=== PATIENT | male | born 1950 | race Two or more races ===

== ENCOUNTER → 2020-11-11 10:47 | Outpatient (BNVA) | payer MEDICARE, SELFPAY | PROVIDERS: PCP Internal Medicine; Visit Provider Hospitalist | DX: Z13.89 Encounter for screening for other disorder (principal) | CPT/HCPCS: 99202 ==

== ENCOUNTER 2020-11-28 06:46 | Outpatient (REF) | payer MEDICARE, SELFPAY ==
[2020-11-28 07:31] LABS: Anion Gap 12 (12-20); Blood Urea Nitrogen 18 mg/dL (9-16); Calcium 9.5 mg/dL (8.4-10.2); Carbon Dioxide 27 mmol/L (22-29); Chloride 107 mmol/L (96-108); Estimated Glomerular Filt Rate > 60; Glucose Random 105 mg/dL (60-115); Potassium 4.3 mmol/L (3.3-5.1); Sodium 142 mmol/L (135-145)
== END 2020-11-28 06:47 | disposition home or self-care (01) ==
LOC: HO.LAB 06:46
PROVIDERS: PCP Internal Medicine; Visit Provider Hospitalist
DX: I26.94 Multiple subsegmental thrombotic pulmonary emboli without acute cor pulmonale (principal); J18.9 Pneumonia, unspecified organism
CPT/HCPCS: 36415; 80048

== ENCOUNTER 2020-12-16 08:46 | Outpatient (REF) | payer MEDICARE, SELFPAY ==
--- NOTE | ~2020-12-16 | CT_ITS ---
EXAMINATION: CT ANGIOGRAM OF THE CHEST WITH AND WITHOUT CONTRAST (CT PULMONARY ANGIOGRAM FOR PE) CLINICAL INFORMATION: Reason for Exam J18.9 - Pneumonia, unspecified organism COMPARISON: None TECHNIQUE: Prior to contrast administration, noncontrast localization images were obtained. Subsequently, multidetector volumetric imaging was performed from the thoracic inlet to below the diaphragms following the administration of 65 mL Omnipaque 350 intravenous contrast. No contrast reaction reported Sagittal, coronal, and MIP oblique sagittal reformatted images were obtained on the CT workstation, uploaded to PACS, and reviewed. This CT examination was performed using dose optimization techniques as appropriate, variously including the following: *Automated exposure control *Adjustment of mA and/or kV according to patient size (this includes techniques or standardized protocols for targeted exams where dose is matched to indication/reason for exam; i.e. extremities or head) *Use of iterative reconstruction technique Total exam dose-length product 182 mGy-cm FINDINGS: QUALITY OF STUDY/CONTRAST BOLUS: Satisfactory. PULMONARY ARTERIES: No central or segmental pulmonary emboli. THORACIC AORTA: No aneurysm or dissection. LUNG: There are large areas of increased attenuation or mosaic perfusion seen throughout the lungs. There is a small 3 mm calcified right upper lobe nodule. There is no evidence of emphysema or bronchiectasis. No endobronchial or endotracheal lesion is seen. PLEURA: No pleural effusion or pneumothorax. MEDIASTINUM: Normal heart size. Mild coronary artery and aortic valve calcification. No pericardial effusion. There is shotty mediastinal lymphadenopathy. No enlarged lymph nodes are seen.. No evidence of septal bowing or right heart strain. CHEST WALL/AXILLA: No axillary or internal mammary lymphadenopathy. OSSEOUS STRUCTURES: No acute or suspicious osseous abnormality. UPPER ABDOMEN: There is a small low-attenuation lesion in the peripheral lateral segment of the left lobe of the liver. The there is hypertrophy of the left lobe questionable for mild cirrhotic changes. The main portal vein is upper normal in size measuring 1.7 cm and there are small upper abdominal varices. Findings are questionable for portal hypertension.. No reflux of contrast into the hepatic veins to suggest elevated right heart pressures. CT/CT angio chest PE protocol IMPRESSION: No evidence of pulmonary embolism. Large areas of increased parenchymal attenuation questionable for pneumonitis or hypoventilatory changes. VTE: negative
== END 2020-12-16 08:47 | disposition home or self-care (01) ==
LOC: HO.CT 08:46
PROVIDERS: Visit Provider Hospitalist
DX: J18.9 Pneumonia, unspecified organism (principal); I26.99 Other pulmonary embolism without acute cor pulmonale
CPT/HCPCS: 71275; Q9967

== ENCOUNTER → 2020-12-20 10:01 | Outpatient (BNVA) | payer MEDICARE, SELFPAY | PROVIDERS: PCP Internal Medicine; Visit Provider Hospitalist | DX: I26.94 Multiple subsegmental thrombotic pulmonary emboli without acute cor pulmonale (principal); J18.9 Pneumonia, unspecified organism | CPT/HCPCS: 99212 ==

== ENCOUNTER → 2021-01-30 10:46 | Outpatient (BNVA) | payer MEDICARE, SELFPAY | PROVIDERS: PCP Internal Medicine; Visit Provider Hospitalist | DX: I26.94 Multiple subsegmental thrombotic pulmonary emboli without acute cor pulmonale (principal); B94.8 Sequelae of other specified infectious and parasitic diseases; J18.9 Pneumonia, unspecified organism; J01.00 Acute maxillary sinusitis, unspecified | CPT/HCPCS: 99212 ==

== ENCOUNTER 2021-03-07 06:52 | Outpatient (REF) | payer MEDICARE, SELFPAY ==
[2021-03-07 07:16] LABS: MANUAL DIFF FLAG NO
[2021-03-07 07:19] LABS: Basophils Absolute Auto 0.1 X10*3/uL (0.0-0.2); Eosinophils Absolute Auto 0.2 X10*3/uL (0.0-0.4); Hematocrit 48.8 % (42-52); Hemoglobin 15.5 g/dl (14.0-18.0); Imm Gran Abs Auto 0.02 X10*3/uL (0.00-0.03); Imm Gran Pct Auto 0.3 % (0.0-0.4); Lymphocytes Absolute Auto 2.5 X10*3/uL (1.2-4.9); Lymphocytes Percent Auto 37.6 % (20-40); Mean Corpuscular HGB Conc 31.8 g/dl (31.0-36.0); Mean Corpuscular Hemoglobin 27.4 pg (27.0-33.0); Mean Corpuscular Volume 86.2 fL (80-98); Mean Platelet Volume 10.5 fL (9.4-12.4); Monocytes Absolute Auto 0.5 X10*3/uL (0.1-1.2); Monocytes Percent Auto 7.4 % (2-11); Neutrophils Absolute Auto 3.4 X10*3/uL (2.0-8.3); Neutrophils Percent Auto 50.7 % (45-73); Platelet Count 311 X10*3/uL (160-400); Red Blood Count 5.66 X10*6/uL (4.60-5.80); Red Cell Distribution Width 14.3 % (11.0-16.0); White Blood Count 6.8 X10*3/uL (4.8-10.8)
[2021-03-07 07:27] LABS: D Dimer < 200 NG/ML
[2021-03-07 08:16] LABS: Erythrocyte Sedimentation Rate 2 MM/HR (0-15)
[2021-03-11 14:21] LABS: Anti Nuclear Antibody Pattern Nuclear, Homogeneous; Anti Nuclear Antibody Screen POSITIVE (NEGATIVE)
== END 2021-03-07 06:53 | disposition home or self-care (01) ==
LOC: HO.LAB 06:52
PROVIDERS: PCP Internal Medicine; Visit Provider Hospitalist
DX: I26.94 Multiple subsegmental thrombotic pulmonary emboli without acute cor pulmonale (principal); J18.9 Pneumonia, unspecified organism
CPT/HCPCS: 36415; 85025; 85379; 85652; 86038; 86039

== ENCOUNTER → 2021-03-21 08:45 | Outpatient (BNVA) | payer MEDICARE, SELFPAY | PROVIDERS: PCP Internal Medicine; Visit Provider Hospitalist | DX: I26.94 Multiple subsegmental thrombotic pulmonary emboli without acute cor pulmonale (principal); J18.9 Pneumonia, unspecified organism; B94.8 Sequelae of other specified infectious and parasitic diseases | CPT/HCPCS: 99212 ==

== ENCOUNTER → 2021-06-18 08:13 | Outpatient (BNVA) | payer MEDICARE, SELFPAY | PROVIDERS: PCP Internal Medicine; Visit Provider Hospitalist | DX: J18.9 Pneumonia, unspecified organism (principal); I26.94 Multiple subsegmental thrombotic pulmonary emboli without acute cor pulmonale; R76.8 Other specified abnormal immunological findings in serum; B94.8 Sequelae of other specified infectious and parasitic diseases | CPT/HCPCS: 99212 ==

== ENCOUNTER 2021-12-04 06:26 | Outpatient (REF) | payer OTHER, SELFPAY ==
--- NOTE | ~2021-12-04 | XR_ITS ---
EXAMINATION: XR CHEST 2 VIEWS CLINICAL INFORMATION: Cough. COMPARISON: CTA chest dated 12/16/2020. TECHNIQUE: Frontal and lateral views of the chest were obtained. FINDINGS: The heart, great vessels, pulmonary vasculature and mediastinum are normal. A right pericardial fat-pad is redemonstrated, consistent with prior CT findings (7:52) The lungs show no focal infiltrate, effusion or pneumothorax. There is mild elevation of the right hemidiaphragm. There is no acute osseous abnormality. XR/XR chest 2V IMPRESSION: No active cardiopulmonary disease.
[2021-12-04 06:46] LABS: MANUAL DIFF FLAG NO
[2021-12-04 06:55] LABS: Basophils Absolute Auto 0.1 X10*3/uL (0.0-0.2); Basophils Percent Auto 0.7 % (0-2); Eosinophils Absolute Auto 0.2 X10*3/uL (0.0-0.4); Eosinophils Percent Auto 2.6 % (0-4); Hematocrit 47.9 % (42.0-52.0); Hemoglobin 15.3 g/dl (14.0-18.0); Imm Gran Abs Auto 0.01 X10*3/uL (0.00-0.03); Imm Gran Pct Auto 0.1 % (0.0-0.4); Lymphocytes Absolute Auto 2.8 X10*3/uL (1.2-4.9); Mean Corpuscular HGB Conc 31.9 g/dl (31.0-36.0); Mean Corpuscular Hemoglobin 27.4 pg (27.0-33.0); Mean Corpuscular Volume 85.8 fL (80.0-98.0); Mean Platelet Volume 10.6 fL (9.4-12.4); Monocytes Absolute Auto 0.5 X10*3/uL (0.1-1.2); Monocytes Percent Auto 7.2 % (2-11); Neutrophils Absolute Auto 3.8 x10*3/uL (2.0-8.3); Neutrophils Percent Auto 51.4 % (45-73); Platelet Count 277 X10*3/uL (160-400); Red Blood Count 5.58 X10*6/uL (4.60-5.80); Red Cell Distribution Width 13.8 % (11.0-16.0); White Blood Count 7.4 X10*3/uL (4.8-10.8)
[2021-12-04 07:31] LABS: Erythrocyte Sedimentation Rate 2 MM/HR (0-15)
--- NOTE | 2021-12-04 09:27 | PFT_ITS ---
Forced vital capacity 90%, FEV1 101%, FEF 25/75, 157%, and MVV 106%. All these values are normal. No significant response to bronchodilator therapy. Total lung capacity 76% and residual volume 58%. Diffusion capacity 69%. CONCLUSION: Mild restrictive pulmonary disorder. No evidence of obstructive airway disorder and no significant response to bronchodilator therapy. MD RENETTA Vera/MODL / [id number]
[2021-12-05 17:11] LABS: SARS-COV-2 IgG Spike, Semi-Qnt >150.00 index (<1.00)
[2021-12-09 09:17] LABS: Anti Nuclear Antibody Pattern Nuclear, Homogeneous; Anti Nuclear Antibody Screen POSITIVE (NEGATIVE); Anti Nuclear Antibody Titer 1:40 titer
== END 2021-12-04 06:27 | disposition home or self-care (01) ==
LOC: HO.RESP 06:26
PROVIDERS: PCP Internal Medicine; Visit Provider Hospitalist
DX: R06.00 Dyspnea, unspecified (principal); B94.8 Sequelae of other specified infectious and parasitic diseases; I26.99 Other pulmonary embolism without acute cor pulmonale; J18.9 Pneumonia, unspecified organism; R76.8 Other specified abnormal immunological findings in serum
CPT/HCPCS: 36415; 71046; 85025; 85652; 86038; 86039; 86769; 94060; 94727; 94729

== ENCOUNTER 2021-12-18 09:11 | Outpatient (REF) | payer OTHER, SELFPAY ==
[2021-12-18 11:35] LABS: D Dimer High Sensitivity < 150 NG/ML
== END 2021-12-18 09:12 | disposition home or self-care (01) ==
LOC: HO.LAB 09:11
PROVIDERS: PCP Internal Medicine; Visit Provider Hospitalist
DX: B94.8 Sequelae of other specified infectious and parasitic diseases (principal); I26.99 Other pulmonary embolism without acute cor pulmonale; J18.9 Pneumonia, unspecified organism; I26.94 Multiple subsegmental thrombotic pulmonary emboli without acute cor pulmonale; R76.8 Other specified abnormal immunological findings in serum
CPT/HCPCS: 36415; 85379; 99212

== ENCOUNTER → 2022-01-30 08:59 | Outpatient (BNVA) | payer OTHER, SELFPAY | PROVIDERS: PCP Internal Medicine; Visit Provider Hospitalist | DX: J18.9 Pneumonia, unspecified organism (principal); I26.94 Multiple subsegmental thrombotic pulmonary emboli without acute cor pulmonale; R76.8 Other specified abnormal immunological findings in serum | CPT/HCPCS: 99212 ==

== ENCOUNTER 2022-10-02 09:38 | Outpatient (REF) | payer OTHER, SELFPAY ==
--- NOTE | ~2022-10-02 | XR_ITS ---
EXAMINATION: XR CHEST 2 VIEWS CLINICAL INFORMATION: Pneumonia. COMPARISON: Chest radiographs dated 12/04/2021. TECHNIQUE: Frontal and lateral views of the chest were obtained. FINDINGS: The heart, great vessels, pulmonary vasculature and mediastinum are normal. The lungs show no focal infiltrate, effusion or pneumothorax. There is moderate elevation of the right hemidiaphragm. There is no acute osseous abnormality. XR/XR chest 2V IMPRESSION: No active cardiopulmonary disease.
== END 2022-10-02 09:39 | disposition home or self-care (01) ==
LOC: HO.XRAY 09:38
PROVIDERS: PCP Internal Medicine; Visit Provider Hospitalist
DX: I26.94 Multiple subsegmental thrombotic pulmonary emboli without acute cor pulmonale (principal); J18.9 Pneumonia, unspecified organism; R76.8 Other specified abnormal immunological findings in serum; R01.1 Cardiac murmur, unspecified
CPT/HCPCS: 71046; 99212

== ENCOUNTER → 2022-10-21 08:31 | Outpatient (REF) | payer OTHER, SELFPAY ==
--- NOTE | 2022-10-21 08:34 | CA_ITS ---
Transthoracic Echocardiogram Patient (Last, First, Middle): Rochelle Nath, Gender: Male Date of : 1950 Age: 72 Procedure Date: 10/21/2022 Procedure Type: Transthoracic Echocardiogram Location: OP Height: 167.64 cm Weight: 86.18 kg BSA: 1.96 m2 Heart Rate: bpm BP: 130 / 70 mmHg [employer] Technical Officer: TO Referring MD: Gabriele Rosas MD Front Office Clerk: Rell Jiménez MD Symptoms: R01.1 - Cardiac murmur, unspecified Study Quality: Fair/Contrast ECG Rhythm: Sinus Conclusions: - 1. Normal LV systolic function with pseudonormal filling pattern 2. Calcified aortic valve with early mild aortic stenosis and mild aortic regurgitation 3. Normal RV systolic pressure 4. Mildly dilated ascending aorta at 4 cm 5. No gross pericardial effusion Findings Procedure Information Contrast agent, definity, is being given per protocol without apparent complications. Left Ventricle Normal left ventricular size, thickness, and systolic function. The visually estimated ejection fraction is between 60-65%. Spectral Doppler is indicative of a pseudonormal filling pattern. E/E prime ratio is between 8 and 15 consistent with indeterminate filling pressures. Right Ventricle Normal right ventricular cavity size and systolic function. Atria The left atrium is likely dilated. Interatrial shunt cannot be excluded. The right atrium is normal in size. Aortic Valve There is moderate calcification of the aortic valve. There is moderate thickening of the aortic valve. The peak aortic gradient is 16 mmHg.The mean gradient is 9 mmHg. There is mild aortic valve regurgitation. Mitral Valve There is mild anterior and posterior mitral leaflet thickening. There is mild mitral annular calcification. There is trace mitral valve regurgitation. There is no mitral valve stenosis. Pulmonic Valve The pulmonic valve was not well visualized. Tricuspid Valve Likely normal tricuspid valve structure and function. There is trace tricuspid valve regurgitation. The right ventricular systolic pressure is normal. The right ventricular systolic pressure is 21 mmHg. Normal right atrial pressure. There is no evidence of pulmonary hypertension. Great Vessels The pulmonary artery was not well visualized. There is mild dilatation of the ascending aorta. Venous The inferior vena cava is normal in size and collapses greater than 50% with inspiration. Pericardium/Pleural There is no evidence of pericardial effusion. Prior Study Comparison No prior study available for comparison. Measurements 2D Linear Measurements IVSd: 0.90 0.6-0.9/0.6-1.0 cm LVIDd: 4.84 3.9-5.3/4.2-5.9 cm LVIDd Index: 2.47 2.4-3.2/2.2-3.1 cm/m2 LVIDs: 3.08 2.0-3.6 cm LVPWd: 0.92 0.7-1.1 cm LA Diam: 4.30 2.7-3.8/3.0-4.0 cm LAIDs Index: 2.19 1.5-2.3 cm/m2 LV Mass: 189.45 67-162/88-224 g LV Mass Index: 96.66 43-95/49-115 g/m2 LVOT Diam: 2.10 3.0+(-)1.3 cm 2D Systolic Function EF 4C: 65.40 >55% EF 2C: 63.70 >55% EF BiP: 63.30 >55% Mitral Valve MV Pk E: 0.62 MV PK A: 0.41 MV Decel Time: 164.00 E/A: 1.50 E'Lateral: 10.10 E'Medial: 5.66 E/E' Med: 10.90 E/E' Lat: 6.10 PHT: 48.00 MVA PHT: 4.58 Decel [place]: 3.76 Aortic Valve AoV Pk Nick: 2.01 AoV Mn Nick: 1.38 AoV VTI: 0.42 AoV Pk Grad: 16.00 Aov Mn Grad: 9.00 GOLD Cont.VTI: 2.08 LVOT LVOT Pk Nick: 1.04 LVOT Mn Nick: 0.71 LVOT VTI: 0.25 LVOT Pk Grad: 4.00 LVOT Mn Grad: 2.00 LVOT Diam: 2.10 LVOT Area: 3.46 Diastolic Function MV Pk E: 0.62 MV Pk A: 0.41 E/A: 1.50 E'Medial: 5.66 E/E' Med: 10.90 E' Laterial: 10.10 E/E' Lat: 6.10 Right Ventricle TAPSE (mm): 21.70 TVS' Nick: 12.60 Tricuspid Valve TR Pk Nick: 2.10 TR Pk Grad: 18.00 RA Press: 3.00 RVSP: 21.00 Great Vessels Aorta Sinus of Valsalva: 3.83 2.0-3.5 cm Ao Asc: 4.00 2.1-3.4 cm Updated in Other Vendor System with Status of Final Rell Jiménez MD electronically signed on 10/21/2022 3:41:20 PM with status of Final
== END ==
LOC: HO.CARD 08:31
PROVIDERS: PCP Internal Medicine; Visit Provider Hospitalist
DX: R01.1 Cardiac murmur, unspecified (principal)
CPT/HCPCS: 93306; Q9957

== ENCOUNTER 2023-10-01 09:38 | Outpatient (AMB) | payer OTHER, SELFPAY ==
[2023-10-01 09:42] VITALS: BP 124/70; PULSE 80; O2SAT 98; BMI 31.8
--- NOTE | 2023-10-01 09:42 | A.OFFVIS_ITS ---
Intake Vital Signs 10/01/23 09:42 Height 5 ft 6 in Weight 197 lb 5.019 oz BMI 31.8 BP 124/70 Blood Pressure Location Lt brachial Position Sitting Pulse 80 Pulse Source Pulse Oximeter Pulse Oximetry (%) 98 Oxygen Delivery Method Room Air Intake Visit Reasons: Pulmonary embolism Reference Archivist Required: No Allergies No Known Allergies Allergy (Verified 10/01/23 09:45) HPI HPI Comments History of Present Illness Details The patient is a 73-year-old gentleman who has previously healthy until back in the end of June when he developed COVID-19. He was ultimately hospitalized at [facility] for approximately more than 2 weeks. The patient did have COVID-19 pneumonia. He was treated appropriately there subsequently discharged home. He felt weak. His symptoms continued getting worsening became more short of breath. He was so concerned with the breathing that he went back to [facility] for further evaluation. There in the ER he did undergo a CT scan of the chest PE protocol demonstrating multiple segmental and subsegmental emboli primarily in the right upper middle and lower lobes. The patient also had ground-glass opacities consistent with pneumonitis own also consolidation consistent with pneumonia. The patient has been on Eliquis ever since. He is running out of the Eliquis is wondering if he should continue. At this point the patient continues to have some symptoms of shortness of breath with activity mild in severity. We did have him go for 6 minutes walk test. During the ambulation he was able to ambulate 300 yd. His heart rate did increase to about 108 resulting in some increased shortness of breath. His Thomas score is 4/10. His pulse ox is the lowest became was 95%. Based on his ongoing dyspnea symptoms will be reasonable to repeat the CT scan of the chest to assess the pneumonitis and also to assess the consolidation in addition to make sure that his clots are resolved prior to stopping the anticoagulation. 12/20/2020 patient is here for pulmonary follow-up visit. Overall patient is doing well. He is tolerating the anticoagulation well. No evidence of any bleeding. The patient did have a repeat CT chest angiogram demonstrating resolution of the bone disease in addition to the stable pulmonary nodules. Still, the patient demonstrates areas of mosaic pattern in or pneumonitis which is likely the result of the cover 19 infection. His breathing is overall better. Plan to complete to 6 months of anticoagulation that he can stop the anticoagulation and will recheck his D-dimer 4 weeks later to risk stratify his risk for recurrent thromboembolic disease. 01/30/2021 the patient is here for saundra batista sick visit. Since we last spoke she has been having significant coughing episodes. The cough is getting worse and very aggravating to him. Moderate severity. Fact in his sleep. He is also very concerned because is coughing Public specially with the pandemic going on. He has been using the Dulera twice a day. He does have a postnasal drip and nasal congestion. Sometimes starts going to the coughing spells has lightheadedness. His lungs sound diminished but clear. No significant wheezing appreciated. Likely upper airway cough syndrome. He is not taking any KORTNEY inhibitors at this time. He has been taking iorv-zgt-pzqtzyu cough medication without any significant improvement. 03/21/2021 the patient is here for a pulmonary follow-up visit. Overall he is feeling a little better. His cough has improved a little bit. Although, he continues to have coughing spells to the medicine has been partially helpful. He continues to take to Dulera in addition to the cough suppressants. We did review again his CT scan of the chest demonstrating residual interstitial changes that are likely corresponding to his cough. He did complete the prednisone. No additional prednisone warranted. He has been on the Eliquis no more than 4 weeks. His D-dimer was below 200 which is reassuring that his risk of recurrent clot is low. Therefore he will continue to be off the anticoagulation at this time. No evidence of any residual clots and a CT scan of the chest which is also reassuring he did undergo blood he did have a slightly elevated MADELYN titer which at this point is likely not related to his interstitial process. However, needs to be monitored closely to see if it worsens or if he develops any other connective tissue disease symptoms. 06/18/2021 the patient is here for a [facility] follow-up visit. Overall he is doing little better. He continues to a dry cough. Moderate severity at times. The cough suppressant, codeine only cause dizziness in addition so therefore he stopped it. Tessalon Perles are still helpful. He rated completed the prednisone. Denies any more wheezing or chest congestion. He is using the Dulera. He was supposed to undergo pulmonary function studies but he did not. He has been walking regularly. At this point will have him get a repeat chest x-ray and PFTs prior to the next visit. He is wondering about the risk of blood clots. He is having some tenderness over the right calf. His blood clots were in the left calf. I did put putting for blood work including a D-dimer that he can not check in case symptoms do persist. If the D-dimer indeed is elevated then will have to we evaluate for potential clot burden. 12/18/2021 the patient is here for pulmonary follow-up visit. He continues to complain of a dry cough in addition to chest tightness and wheezing. Moderate severity. His inhalers Have not been that helpful. In addition to that he does complaint of dyspnea on exertion. He does try to exercise but he gets very winded very quickly. Moderate severity. He did have a chest x-ray done demonstrating persistent airspace disease likely some degree of reticular changes due to his severe COVID infection. He did undergo pulmonary function studies also demonstrating ovjg-ta-hlhspozj restrictive process due to the interstitial lung disease. Therefore, vanc being his diffusing capacity as well. In the office we did go for 6 minutes walk test the patient did not desaturate below 94%. Still the patient did become tachycardic and became symptomatic. In addition to he did complain of calf discomfort in his left side. Therefore I told them that we should at least do a D-dimer to make sure that he does not have any recurrent clots. He did have a D-dimer done actually today and did come back negative. Therefore this is reassuring that he does not have any evidence of any recurrent thromboembolic disease however, was to continue to monitor him closely. In view of the patient not responding well to his inhaler will provide with a nebulizer machine that he can use twice a day to see if this provides additional benefits. If the nebulizer is more effective for him he can also add additional medications to help him improve his symptoms. 01/30/2022 the patient is here for pulmon jonnathan follow-up visit. Overall he is feeling better. His cough is overall better. He is using his respiratory therapy with good effect. Denies any significant tachycardia. Denies any leg swelling or chest pain. He has been off anticoagulation now for several months. His D-dimer came back negative. We did review his last chest x-ray from November 2021 demonstrating no acute disease. At this point the patient has recovered and doing better. 10/02/2022 The patient is here for pulshirlene batista follow-up visit. Overall the patient continues to do well. His cough still continues to be better. He still complains of some dyspnea on exertion. He does go to the gym regularly and does have wuue-sz-szogoktj shortness of breath. He is trying to stay active and exercise regularly. He also continues uses maintenance inhaler. He has not had to use his rescue inhaler. We did review his recent chest x-ray that he had today. No active disease noted. No additional x-rays are needed. Although this has not been finally read. If there is any other changes that I did not appreciate then will follow through. In the meantime the patient had an exam and he did have a murmur on examination. therefore, in view of his shortness of breath I will go ahead and request an echocardiogram to make sure that there was no significant findings. Otherwise patient will return in 1 year. 10/01/2023 the patient is here for pul[place] follow-up visit. The patient overall has been doing very well. He denies any significant shortness breath. Has not had to use his inhalers regularly. We did review his last echocardiogram that he had back in 2022 demonstrating mild degree of aortic stenosis anywhere aortic regurg with a slightly dilated ascending aorta. This was measuring 4 cm. I did give him a report the patient will follow-up with his primary care doctor. I did not appreciate a murmur today. I did recommend he has some degree of follow-up in the future for these issues. From a pulmonary standpoint the patient is doing well he continue with the current respiratory regimen. He will follow-up in a year's time or as needed. [facility] Medical History (Updated 10/01/23 @ 12:31 by Gabriele Rosas MD) Mild ascending aorta dilatation Murmur MADELYN positive [id number] syndrome Pulmonary emboli Pneumonia Pneumonitis Social History Patient Tobacco Use Status: Never used Tobacco Review of Systems Const Denies night sweats ENT Denies change in voice, Denies lip swelling, Denies mouth pain, Reports nasal congestion, Reports nasal discharge and Denies tongue swelling Card Denies chest pain and Denies dyspnea on exertion Resp Reports cough and Denies dyspnea on exertion GI Denies abdominal pain Musc Denies no additional complaints Neuro Denies Neuro-related abnormal movements Psych Denies no additional complaints Darius/Lymph Denies easy bleeding and Denies lymphadenopathy Aller/Immun Denies lip swelling and Denies tongue swelling Physical Exam Vital Signs: Last Vital Signs Pulse 80 10/01/23 09:42 BP 124/70 10/01/23 09:42 Pulse Ox 98 10/01/23 09:42 Oxygen Delivery Method Room Air 10/01/23 09:42 BMI result Body Mass Index 31.8 Const General: alert HEENT Mouth: Normal oral and palatal mucosa present and oropharynx normal Neck Neck: Yes normal visual inspection, Yes full ROM and Yes no lymphadenopathy Chest Chest palpation & inspection: normal inspection of the chest Resp Effort & Inspection: normal respiratory effort Auscultation: clear to auscultation bilaterally and no wheezes Cardio Rate: regular rate Rhythm: regular rhythm Heart sounds: S1 normal heart sound present and S2 normal heart sound present GI Palpation (GI): Soft to palpation and nontender Auscultation: normal bowel sounds Results Reviewed Results Reviewed: [place] [id number] Cardiology Report Signed Patient: Rochelle Nath MR#: [id number] : 1950 Acct:[id number] Age/Sex: 72 / M ADM Date: 10/21/22 Loc: [facility] Attending Dr: Gabriele oRsas MD Ordering Physician: Gabriele Rosas MD Date of Service: 10/21/22 Procedure(s): CA echo transthorac w con Accession Number(s): cc: Gabriele Rosas MD~ Transthoracic Echocardiogram Patient (Last, First, Middle): Rochelle Nath, Gender: Male Date of : 1950 Age: 72 Procedure Date: 10/21/2022 Procedure Type: Transthoracic Echocardiogram Location: OP Height: 167.64 cm Weight: 86.18 kg BSA: 1.96 m2 Heart Rate: bpm BP: 130 / 70 mmHg Wound Care Specialist: TO Referring MD: Gabriele Rosas MD Electronic Imager: Rell Jiménez MD Symptoms: R01.1 - Cardiac murmur, unspecified Study Quality: Fair/Contrast ECG Rhythm: Sinus Conclusions: - 1. Normal LV systolic function with pseudonormal filling pattern 2. Calcified aortic valve with early mild aortic stenosis and mild aortic regurgitation 3. Normal RV systolic pressure 4. Mildly dilated ascending aorta at 4 cm 5. No gross pericardial effusion Findings Procedure Information Contrast agent, definity, is being given per protocol without apparent complications. Left Ventricle Normal left ventricular size, thickness, and systolic function. The visually estimated ejection fraction is between 60-65%. Spectral Doppler is indicative of a pseudonormal filling pattern. E/E prime ratio is between 8 and 15 consistent with indeterminate filling pressures. Right Ventricle Normal right ventricular cavity size and systolic function. Atria The left atrium is likely dilated. Interatrial shunt cannot be excluded. The right atrium is normal in size. Aortic Valve There is moderate calcification of the aortic valve. There is moderate thickening of the aortic valve. The peak aortic gradient is 16 mmHg.The mean gradient is 9 mmHg. There is mild aortic valve regurgitation. Mitral Valve There is mild anterior and posterior mitral leaflet thickening. There is mild mitral annular calcification. There is trace mitral valve regurgitation. There is no mitral valve stenosis. Pulmonic Valve The pulmonic valve was not well visualized. Tricuspid Valve Likely normal tricuspid valve structure and function. There is trace tricuspid valve regurgitation. The right ventricular systolic pressure is normal. The right ventricular systolic pressure is 21 mmHg. Normal right atrial pressure. There is no evidence of pulmonary hypertension. Great Vessels The pulmonary artery was not well visualized. There is mild dilatation of the ascending aorta. Venous The inferior vena cava is normal in size and collapses greater than 50% with inspiration. Pericardium/Pleural There is no evidence of pericardial effusion. Prior Study Comparison No prior study available for comparison. Measurements 2D Linear Measurements IVSd: 0.90 0.6-0.9/0.6-1.0 cm LVIDd: 4.84 3.9-5.3/4.2-5.9 cm LVIDd Index: 2.47 2.4-3.2/2.2-3.1 cm/m2 LVIDs: 3.08 2.0-3.6 cm LVPWd: 0.92 0.7-1.1 cm LA Diam: 4.30 2.7-3.8/3.0-4.0 cm LAIDs Index: 2.19 1.5-2.3 cm/m2 LV Mass: 189.45 67-162/88-224 g LV Mass Index: 96.66 43-95/49-115 g/m2 LVOT Diam: 2.10 3.0+(-)1.3 cm 2D Systolic Function EF 4C: 65.40 >55% EF 2C: 63.70 >55% EF BiP: 63.30 >55% Mitral Valve MV Pk E: 0.62 MV PK A: 0.41 MV Decel Time: 164.00 E/A: 1.50 E'Lateral: 10.10 E'Medial: 5.66 E/E' Med: 10.90 E/E' Lat: 6.10 PHT: 48.00 MVA PHT: 4.58 Decel [place]: 3.76 Aortic Valve AoV Pk Nick: 2.01 AoV Mn Nick: 1.38 AoV VTI: 0.42 AoV Pk Grad: 16.00 Aov Mn Grad: 9.00 GOLD Cont.VTI: 2.08 LVOT LVOT Pk Nick: 1.04 LVOT Mn Nick: 0.71 LVOT VTI: 0.25 LVOT Pk Grad: 4.00 LVOT Mn Grad: 2.00 LVOT Diam: 2.10 LVOT Area: 3.46 Diastolic Function MV Pk E: 0.62 MV Pk A: 0.41 E/A: 1.50 E'Medial: 5.66 E/E' Med: 10.90 E' Laterial: 10.10 E/E' Lat: 6.10 Right Ventricle TAPSE (mm): 21.70 TVS' Nick: 12.60 Tricuspid Valve TR Pk Nick: 2.10 TR Pk Grad: 18.00 RA Press: 3.00 RVSP: 21.00 Great Vessels Aorta Sinus of Valsalva: 3.83 2.0-3.5 cm Ao Asc: 4.00 2.1-3.4 cm Updated in Other Vendor System with Status of Final Rell Jiménez MD electronically signed on 10/21/2022 3:41:20 PM with status of Final Dictated By: Rell Jiménez MD Signed By: <Electronically signed by Rell Jiménez MD in OV> 10/21/22 1541 DD/ 0904 TD/TT: Sculpture Instructor: Assessment & Plan Assessment & Plan (1) Pulmonary emboli: Comment: now resolve this was secondary to his COVID-19 infection therefore, consider a provoked event, ddimer negative x 2 Code(s): I26.99 - Other pulmonary embolism without acute cor pulmonale Qualifiers: Pulmonary embolism type: multiple subsegmental (without acute cor pulmonale) Qualified Code(s): I26.94 - Multiple subsegmental pulmonary emboli without acute cor pulmonale (2) MADELYN positive: Code(s): R76.8 - Other specified abnormal immunological findings in serum (3) Murmur: Comment: mild /AR Code(s): R01.1 - Cardiac murmur, unspecified (4) Mild ascending aorta dilatation: Code(s): I77.810 - Thoracic aortic ectasia Plan Continue Dulera short-acting beta agonist as needed Follow-up with primary care regarding the findings on the echocardiogram. I did give him a copy. As attached a copy to this report. F/U 12 months or as needed Medications: Changed From mometasone-formoterol 200-5 mcg/actuation (Dulera) 2 puffs inhalation BID To mometasone-formoterol 200-5 mcg/actuation (Dulera) 2 puffs inhalation BID 30 days 13 grams 11RF Refilled albuterol sulfate 90 mcg/actuation 2 inhalations inhalation Q6H 30 days PRN 18 grams 12RF shortness of breath or wheezing J44.9 - Chronic obstructive pulmonary disease, unspecified Coding Level of Care Code Est Pt Level 4 (12591) Diagnoses Multiple subsegmental pulmonary emboli without acute cor pulmonale I26.94 Pulmonary embolism type: multiple subsegmental (without acute cor pulmonale) MADELYN positive R76.8 Murmur R01.1 Mild ascending aorta dilatation I77.810 Time Spent (min) 17
== END 2023-10-01 10:00 | disposition home or self-care (01) ==
PROVIDERS: PCP Internal Medicine; Visit Provider Hospitalist
DX: I26.94 Multiple subsegmental thrombotic pulmonary emboli without acute cor pulmonale (principal); R76.8 Other specified abnormal immunological findings in serum; R01.1 Cardiac murmur, unspecified; I77.810 Thoracic aortic ectasia
CPT/HCPCS: 99214

== ENCOUNTER → 2023-10-01 09:38 | Outpatient (BNVA) | payer OTHER, SELFPAY | PROVIDERS: PCP Internal Medicine; Visit Provider Hospitalist | DX: Z86.711 Personal history of pulmonary embolism (principal); R76.8 Other specified abnormal immunological findings in serum; R01.1 Cardiac murmur, unspecified; I77.810 Thoracic aortic ectasia | CPT/HCPCS: 99212 ==

== ENCOUNTER 2024-12-28 08:36 | Outpatient (AMB) | payer OTHER, SELFPAY ==
--- NOTE | 2024-12-28 08:40 | MHC.OFFVIS ---
Vital Signs 12/28/24 08:41 Height 5 ft 6 in Weight 195 lb 1.745 oz BMI 31.5 BP 120/68 Blood Pressure Location Lt brachial Position Sitting Pulse 83 Pulse Source Pulse Oximeter Pulse Oximetry (%) 97 Oxygen Delivery Method Room Air Intake Visit Reasons: Pulmonary embolism Accompanied by: Self / Same As Patient Allergies No Known Allergies Allergy (Verified 12/28/24 08:43) HPI Comments Details: The patient is a 74-year-old gentleman who has previously healthy until back in the end of June when he developed COVID-19. He was ultimately hospitalized at [facility] for approximately more than 2 weeks. The patient did have COVID-19 pneumonia. He was treated appropriately there subsequently discharged home. He felt weak. His symptoms continued getting worsening became more short of breath. He was so concerned with the breathing that he went back to [facility] for further evaluation. There in the ER he did undergo a CT scan of the chest PE protocol demonstrating multiple segmental and subsegmental emboli primarily in the right upper middle and lower lobes. The patient also had ground-glass opacities consistent with pneumonitis own also consolidation consistent with pneumonia. The patient has been on Eliquis ever since. He is running out of the Eliquis is wondering if he should continue. At this point the patient continues to have some symptoms of shortness of breath with activity mild in severity. We did have him go for 6 minutes walk test. During the ambulation he was able to ambulate 300 yd. His heart rate did increase to about 108 resulting in some increased shortness of breath. His Thomas score is 4/10. His pulse ox is the lowest became was 95%. Based on his ongoing dyspnea symptoms will be reasonable to repeat the CT scan of the chest to assess the pneumonitis and also to assess the consolidation in addition to make sure that his clots are resolved prior to stopping the anticoagulation. 12/20/2020 patient is here for pulmonary follow-up visit. Overall patient is doing well. He is tolerating the anticoagulation well. No evidence of any bleeding. The patient did have a repeat CT chest angiogram demonstrating resolution of the bone disease in addition to the stable pulmonary nodules. Still, the patient demonstrates areas of mosaic pattern in or pneumonitis which is likely the result of the cover 19 infection. His breathing is overall better. Plan to complete to 6 months of anticoagulation that he can stop the anticoagulation and will recheck his D-dimer 4 weeks later to risk stratify his risk for recurrent thromboembolic disease. 01/30/2021 the patient is here for pulmonary sick visit. Since we last spoke she has been having significant coughing episodes. The cough is getting worse and very aggravating to him. Moderate severity. Fact in his sleep. He is also very concerned because is coughing Public specially with the pandemic going on. He has been using the Dulera twice a day. He does have a postnasal drip and nasal congestion. Sometimes starts going to the coughing spells has lightheadedness. His lungs sound diminished but clear. No significant wheezing appreciated. Likely upper airway cough syndrome. He is not taking any KORTNEY inhibitors at this time. He has been taking cwps-ajg-stbnmed cough medication without any significant improvement. 03/21/2021 the patient is here for a pulmonary follow-up visit. Overall he is feeling a little better. His cough has improved a little bit. Although, he continues to have coughing spells to the medicine has been partially helpful. He continues to take to Dulera in addition to the cough suppressants. We did review again his CT scan of the chest demonstrating residual interstitial changes that are likely corresponding to his cough. He did complete the prednisone. No additional prednisone warranted. He has been on the Eliquis no more than 4 weeks. His D-dimer was below 200 which is reassuring that his risk of recurrent clot is low. Therefore he will continue to be off the anticoagulation at this time. No evidence of any residual clots and a CT scan of the chest which is also reassuring he did undergo blood he did have a slightly elevated MADELYN titer which at this point is likely not related to his interstitial process. However, needs to be monitored closely to see if it worsens or if he develops any other connective tissue disease symptoms. 06/18/2021 the patient is here for a pulmonary follow-up visit. Overall he is doing little better. He continues to a dry cough. Moderate severity at times. The cough suppressant, codeine only cause dizziness in addition so therefore he stopped it. Tessalon Perles are still helpful. He rated completed the prednisone. Denies any more wheezing or chest congestion. He is using the Dulera. He was supposed to undergo pulmonary function studies but he did not. He has been walking regularly. At this point will have him get a repeat chest x-ray and PFTs prior to the next visit. He is wondering about the risk of blood clots. He is having some tenderness over the right calf. His blood clots were in the left calf. I did put putting for blood work including a D-dimer that he can not check in case symptoms do persist. If the D-dimer indeed is elevated then will have to we evaluate for potential clot burden. 12/18/2021 the patient is here for pulmonary follow-up visit. He continues to complain of a dry cough in addition to chest tightness and wheezing. Moderate severity. His inhalers Have not been that helpful. In addition to that he does complaint of dyspnea on exertion. He does try to exercise but he gets very winded very quickly. Moderate severity. He did have a chest x-ray done demonstrating persistent airspace disease likely some degree of reticular changes due to his severe COVID infection. He did undergo pulmonary function studies also demonstrating gfql-hs-qezcchts restrictive process due to the interstitial lung disease. Therefore, vanc being his diffusing capacity as well. In the office we did go for 6 minutes walk test the patient did not desaturate below 94%. Still the patient did become tachycardic and became symptomatic. In addition to he did complain of calf discomfort in his left side. Therefore I told them that we should at least do a D-dimer to make sure that he does not have any recurrent clots. He did have a D-dimer done actually today and did come back negative. Therefore this is reassuring that he does not have any evidence of any recurrent thromboembolic disease however, was to continue to monitor him closely. In view of the patient not responding well to his inhaler will provide with a nebulizer machine that he can use twice a day to see if this provides additional benefits. If the nebulizer is more effective for him he can also add additional medications to help him improve his symptoms. 01/30/2022 the patient is here for pulmonary follow-up visit. Overall he is feeling better. His cough is overall better. He is using his respiratory therapy with good effect. Denies any significant tachycardia. Denies any leg swelling or chest pain. He has been off anticoagulation now for several months. His D-dimer came back negative. We did review his last chest x-ray from November 2021 demonstrating no acute disease. At this point the patient has recovered and doing better. 10/02/2022 The patient is here for pulmonary follow-up visit. Overall the patient continues to do well. His cough still continues to be better. He still complains of some dyspnea on exertion. He does go to the gym regularly and does have xzis-sa-ljqahgzo shortness of breath. He is trying to stay active and exercise regularly. He also continues uses maintenance inhaler. He has not had to use his rescue inhaler. We did review his recent chest x-ray that he had today. No active disease noted. No additional x-rays are needed. Although this has not been finally read. If there is any other changes that I did not appreciate then will follow through. In the meantime the patient had an exam and he did have a murmur on examination. therefore, in view of his shortness of breath I will go ahead and request an echocardiogram to make sure that there was no significant findings. Otherwise patient will return in 1 year. 10/01/2023 the patient is here for pulmonary follow-up visit. The patient overall has been doing very well. He denies any significant shortness breath. Has not had to use his inhalers regularly. We did review his last echocardiogram that he had back in 2022 demonstrating mild degree of aortic stenosis anywhere aortic regurg with a slightly dilated ascending aorta. This was measuring 4 cm. I did give him a report the patient will follow-up with his primary care doctor. I did not appreciate a murmur today. I did recommend he has some degree of follow-up in the future for these issues. From a pulmonary standpoint the patient is doing well he continue with the current respiratory regimen. He will follow-up in a year's time or as needed. 12/28/2024 the patient is here for a pulmonary follow-up visit. Overall he is doing okay. Still complains of dyspnea on exertion. Tgjw-ls-sfajvqar severity. Primarily with activity. Does well at rest. He has been using her respiratory inhalers with good effect. Patient does complaint of daytime drowsiness. His Lamoni score is elevated 07/30. He does have a history sleep apnea although can not really tolerate the machine. Sometimes also has some palpitations. The patient also has issues with an ectatic aorta and aortic stenosis. In view of his worsening respiratory symptoms will go ahead and repeat the echocardiogram. Will also request a home sleep study this time. Patient follow-up sometime in 4-6 months if he has any issues prior to this he will call for an earlier assessment. 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 Pulmonary emboli Pneumonia Pneumonitis Social History (Updated 12/28/24 @ 08:44 by Mary Nath CMA) Alcohol intake: current Alcohol intake frequency: holidays/special occasions only Patient Tobacco Use Status: Never used Tobacco Review of Systems Const Denies chills, Reports daytime sleepiness, Reports fatigue, Denies fever(s), Reports snoring, Denies weight gain and Denies weight loss ENT Denies dizziness, Denies lip swelling and Denies tongue swelling Card Denies chest pain, Denies leg edema, Denies lightheadedness, Denies palpitations, Denies orthopnea and Denies other Resp Denies cough and Reports snoring GI Denies hematochezia and Denies change in stool character Musc Denies abnormal gait, Denies muscle weakness, Denies numbness, Denies radiating pain into limb and Denies tingling Neuro Denies abnormal gait, Denies dizziness, Denies numbness and Denies tingling Psych Denies no additional complaints Endo Reports fatigue and Denies palpitations Darius/Lymph Denies easy bleeding and Denies lymphadenopathy Aller/Immun Denies lip swelling and Denies tongue swelling Physical Exam Vital Signs: Last Vital Signs Pulse 83 12/28/24 08:41 BP 120/68 12/28/24 08:41 Pulse Ox 97 12/28/24 08:41 Oxygen Delivery Method Room Air 12/28/24 08:41 BMI result Body Mass Index 31.5 Const General: alert HEENT Mouth: Normal oral and palatal mucosa present and oropharynx normal Neck Neck: Yes normal visual inspection, Yes full ROM and Yes no lymphadenopathy Chest Chest palpation & inspection: normal inspection of the chest Resp Effort & Inspection: normal respiratory effort Auscultation: clear to auscultation bilaterally and no wheezes Cardio Rate: regular rate Rhythm: regular rhythm Heart sounds: S1 normal heart sound present, S2 normal heart sound present and Murmur heart sound present GI Palpation (GI): Soft to palpation and nontender Auscultation: normal bowel sounds Assessment & Plan Assessment & Plan (1) Pulmonary emboli: Comment: now resolve this was secondary to his COVID-19 infection therefore, consider a provoked event, ddimer negative x 2 Code(s): I26.99 - Other pulmonary embolism without acute cor pulmonale Category: Medical Qualifiers: Pulmonary embolism type: multiple subsegmental (without acute cor pulmonale) Qualified Code(s): I26.94 - Multiple subsegmental pulmonary emboli without acute cor pulmonale (2) MADELYN positive: Code(s): R76.8 - Other specified abnormal immunological findings in serum Category: Medical (3) Murmur: Comment: mild /AR Code(s): R01.1 - Cardiac murmur, unspecified Category: Medical (4) Mild ascending aorta dilatation: Code(s): I77.810 - Thoracic aortic ectasia Category: Medical (5) MAINE (obstructive sleep apnea): Code(s): G47.33 - Obstructive sleep apnea (adult) (pediatric) Category: Medical Plan Continue Dulera short-acting beta agonist as needed ECHO PSG F/U 4 months Orders: Orders RT home sleep study Today G47.33 - Obstructive sleep apnea (adult) (pediatric) CA echo transthoracic complete Today I27.20 - Pulmonary hypertension, unspecified Coding Level of Care Code Est Pt Level 4 (76669) Complex EM visit Add On G2211 Diagnoses Multiple subsegmental pulmonary emboli without acute cor pulmonale I26.94 Pulmonary embolism type: multiple subsegmental (without acute cor pulmonale) MADELYN positive R76.8 Murmur R01.1 Mild ascending aorta dilatation I77.810 MAINE (obstructive sleep apnea) G47.33 Time Spent (min) 17
[2024-12-28 08:41] VITALS: BP 120/68; PULSE 83; O2SAT 97; BMI 31.5
--- OUTSIDE RECORDS SUMMARY | 2024-12-28 09:01 | XMS_ITS | Clinical Summary ---
Author Organization [facility] [employer] [facility] ity Address [address] [place] [address] Care Team Providers Care Infection Preventionist Name Role Phone Unavailable Primary Care Provider Unavailabl e Social History Tobacco Use Types Packs/Day Years Used Date Smoking Tobacco: Never Assessed Sex and Gender Information Value Date Recorded Sex Assigned at Not on file Legal Sex Male 4:34 AM EST Gender Identity Not on file Sexual Orientation Not on file Plan of Treatment Health Maintenance Due Date Last Done Comments DTaP,Tdap,and Td Vaccines (1 - Tdap) 01/12/1968 Pneumococcal Vaccine: 50+ Ye ars (1 of 1 - PCV) 1999 Zoster Vaccines (1 of 2) 1999 RSV Immunization Adult Patie nts (1 - 1-dose 75+ series) 01/12/2024 COVID-19 Vaccine ( - 2023-2 5 season) 2024 Influenza Vaccine (Season Ended) 2025 HIB Vaccines Aged Out No longer eligi ble based on patient's age to complete this topic HPV Vaccines Aged Out No longer eligi ble based on patient's age to complete this topic Hepatitis A Vaccines Aged Out No long er eligible based on patient's age to complete this topic Hepatitis B Vaccines Aged Out No long er eligible based on patient's age to complete this topic IPV Vaccines Aged Out No longer eligi ble based on patient's age to complete this topic MMR Vaccines Aged Out No longer eligi ble based on patient's age to complete this topic Meningococcal ACWY Vaccine Aged Out N o longer eligible based on patient's age to complete this topic Meningococcal B Vaccine Aged Out No l onger eligible based on patient's age to complete this topic RSV Immunization Patients Un eda 20 months Aged Out No longer eligible b ased on patient's age to complete this topic Varicella Vaccines Aged Out No longer eligible based on patient's age to complete this topic
== END 2024-12-28 09:05 | disposition home or self-care (01) ==
LOC: HO.HPS 08:37
PROVIDERS: PCP Internal Medicine; Visit Provider Hospitalist
DX: I26.94 Multiple subsegmental thrombotic pulmonary emboli without acute cor pulmonale (principal); R76.8 Other specified abnormal immunological findings in serum; R01.1 Cardiac murmur, unspecified; I77.810 Thoracic aortic ectasia; G47.33 Obstructive sleep apnea (adult) (pediatric)
CPT/HCPCS: 99214; G2211

== ENCOUNTER → 2024-12-28 08:36 | Outpatient (BNVA) | payer OTHER, SELFPAY | PROVIDERS: PCP Internal Medicine; Visit Provider Hospitalist | DX: I26.94 Multiple subsegmental thrombotic pulmonary emboli without acute cor pulmonale (principal); I77.810 Thoracic aortic ectasia; R01.1 Cardiac murmur, unspecified; R76.8 Other specified abnormal immunological findings in serum; G47.33 Obstructive sleep apnea (adult) (pediatric) | CPT/HCPCS: 99212 ==

== ENCOUNTER → 2025-01-25 09:35 | Outpatient (REF) | payer OTHER, SELFPAY ==
--- NOTE | 2025-01-25 09:38 | CA_ITS ---
Transthoracic Echocardiogram Patient (Last, First, Middle): Rochelle Nath, Gender: Male Date of : 1950 Age: 75 Procedure Date: 01/25/2025 Procedure Type: Transthoracic Echocardiogram Location: OP Height: 160.02 cm Weight: 86.18 kg BSA: 1.89 m2 Heart Rate: 69 bpm BP: 145 / 75 mmHg Tagman: HETAL/SHER Referring MD: Gabriele Rosas MD Analog Design Engineer: Rell Jiménez MD Symptoms: I27.20 - Pulmonary hypertension, unspecified Study Quality: Adequate w/Contrast ECG Rhythm: Sinus Conclusions: - 1. Normal LV ejection fraction with LVEF of 55-60% with pseudonormal filling pattern 2. Mild aortic stenosis and mild aortic regurgitation 3. Normal RV systolic pressure 4. Mildly dilated ascending aorta at 4 cm 5. No gross pericardial effusion Findings Procedure Information Contrast agent, definity, is being given per protocol without apparent complications. Left Ventricle Normal left ventricular size, thickness, and systolic function. The visually estimated ejection fraction is between 55-60%. Spectral Doppler is indicative of a pseudonormal filling pattern. E/E prime ratio is <8, consistent with normal filling pressures. Evidence suggests grade I (mild) diastolic dysfunction. Right Ventricle Normal right ventricular cavity size and systolic function. Atria Both atria are normal in size. There is no evidence of interatrial shunt. Aortic Valve There is moderate calcification of the aortic valve. There is moderate thickening of the aortic valve. There is mild aortic valve stenosis. The peak aortic gradient is 19 mmHg.The mean gradient is 11 mmHg. The aortic valve area is 1.81 cm2. There is mild aortic valve regurgitation. Mitral Valve Normal mitral valve structure and function. There is trace mitral valve regurgitation. There is no mitral valve stenosis. Pulmonic Valve The pulmonic valve is likely normal. Tricuspid Valve Normal tricuspid valve structure. There is trace tricuspid valve regurgitation. The right ventricular systolic pressure is normal. The right ventricular systolic pressure is 15 mmHg. Normal right atrial pressure. There is no evidence of pulmonary hypertension. Great Vessels The pulmonary artery was not well visualized. There is mild dilatation of the ascending aorta measuring 4.00 cm. Venous The inferior vena cava is normal in size and collapses greater than 50% with inspiration. Pericardium/Pleural There is no evidence of pericardial effusion. Prior Study Comparison No significant change compared to prior study dated: 10/21/2022. Measurements 2D Linear Measurements IVSd: 0.96 0.6-0.9/0.6-1.0 cm LVIDd: 4.56 3.9-5.3/4.2-5.9 cm LVIDd Index: 2.41 2.4-3.2/2.2-3.1 cm/m2 LVIDs: 3.13 2.0-3.6 cm LVPWd: 0.92 0.7-1.1 cm LA Diam: 4.30 2.7-3.8/3.0-4.0 cm LAIDs Index: 2.28 1.5-2.3 cm/m2 LV Mass: 178.90 67-162/88-224 g LV Mass Index: 94.66 43-95/49-115 g/m2 LVOT Diam: 2.10 3.0+(-)1.3 cm 2D Systolic Function EF 4C: 58.50 >55% EF 2C: 53.90 >55% EF BiP: 57.70 >55% Mitral Valve MV VTI: 0.20 MV Pk Nick: 0.72 MV Mn Nick: 0.46 MV Pk Grad: 2.00 MV Mn Grad: 1.00 MV Pk E: 0.62 MV PK A: 0.54 MV Decel Time: 143.00 E/A: 1.20 E'Lateral: 8.27 E'Medial: 5.11 E/E' Med: 12.20 E/E' Lat: 7.50 PHT: 42.00 MVA PHT: 5.24 MVA Continuity: 4.01 Decel Falls: 4.35 Aortic Valve AoV Pk Nick: 2.18 AoV Mn Nick: 1.53 AoV VTI: 0.45 AoV Pk Grad: 19.00 Aov Mn Grad: 11.00 GOLD Cont.VTI: 1.81 LVOT LVOT Pk Nick: 1.03 LVOT Mn Nick: 0.79 LVOT VTI: 0.23 LVOT Pk Grad: 4.00 LVOT Mn Grad: 3.00 LVOT Diam: 2.10 LVOT Area: 3.46 Diastolic Function MV Pk E: 0.62 MV Pk A: 0.54 E/A: 1.20 E'Medial: 5.11 E/E' Med: 12.20 E' Laterial: 8.27 E/E' Lat: 7.50 Right Ventricle TAPSE (mm): 25.40 TVS' Nick: 10.10 Tricuspid Valve TR Pk Nick: 1.75 TR Pk Grad: 12.00 RA Press: 3.00 RVSP: 15.00 Great Vessels Aorta Sinus of Valsalva: 4.00 2.0-3.5 cm Ao Asc: 4.00 2.1-3.4 cm Ao Arch: 3.60 Pulmonary Valve PV Pk Nick: 0.80 Peak PV Grad: 3.00 Updated in Other Vendor System with Status of Final Rell Jiménez MD electronically signed on 01/25/2025 5:20:30 PM with status of Final
--- OUTSIDE RECORDS SUMMARY | 2025-01-25 09:52 | XMS_ITS | Clinical Summary ---
Author Organization [employer] Address [address] [facility] [address] [place] [address] Care Team Providers Care Preparation Plant Supervisor Name Role Phone Unavailable Primary Care Provider Unavailabl e Social History Tobacco Use Types Packs/Day Years Used Date Smoking Tobacco: Never Assessed Sex and Gender Information Value Date Recorded Sex Assigned at Male 07/06/2022 10:23 AM EDT Legal Sex Male 10:23 AM EDT Gender Identity Not on file Sexual Orientation Not on file Plan of Treatment Health Maintenance Due Date Last Done Comments Depression Screening 1950 Lipid Panel 1950 Alcohol/Substance Use Screening 1961 Tobacco Screening 1962 DTaP/Tdap/Td Vaccines (1 - Tdap) 01/12/1968 Pneumococcal Vaccine: 50+ Ye ars (1 of 1 - PCV) 1999 Zoster Vaccines (1 of 2) 1999 RSV Patients and Pa tients Aged 60 years or older (1 - 1-dose 75+ series) 01/12/2024 COVID-19 Vaccine ( - 2023-2 5 season) 2024 Influenza Vaccine (#1) 2024 HIB Vaccines Aged Out No longer eligi [...] patient's age to complete this topic Meningococcal Vaccine Aged Out No gerardo shabbir eligible based on patient's age to complete this topic RSV under 20 months Aged Out No longe r eligible based on patient's age to complete this topic Rotavirus Vaccines Aged Out No longer eligible based on patient's age to complete this topic
--- OUTSIDE RECORDS SUMMARY | 2025-01-25 09:52 | XMS_ITS | Encounter Summary ---
Author Organization [employer] Address [address] [facility] [address] [place] [address] Care Team Providers Care Flight Attendant Inflight Services Name Role Phone Unavailable Primary Care Provider Unavailabl e Encounter Details Date Type Department Care Team (Latest Contact Info) Description 11/25/2018 Abstract [facility] CONVERSIONS Dental, Provider, DDS Social History Tobacco Use Types Packs/Day Years Used Date Smoking Tobacco: Never Assessed Sex and Gender Information Value Date Recorded Sex Assigned at Male 07/06/2022 10:23 AM EDT Legal Sex Male 10:23 AM EDT Gender Identity Not on file Sexual Orientation Not on file documented as of this encounter Plan of Treatment Not on file documented as of this encounter Visit Diagnoses Not on filedocumented in this encounter
--- OUTSIDE RECORDS SUMMARY | 2025-01-25 09:52 | XMS_ITS | Clinical Summary ---
Author Organization [facility] ity Address [address] [place] [address] Care Team Providers Care Crab Meat Processor Name Role Phone Unavailable Primary Care Provider [...]
== END ==
LOC: HO.CARD 09:35
PROVIDERS: PCP Internal Medicine; Visit Provider Hospitalist
DX: I27.20 Pulmonary hypertension, unspecified (principal)
CPT/HCPCS: 93306; Q9957

== ENCOUNTER → 2025-01-25 09:38 | Outpatient (BNV) | payer OTHER, SELFPAY | PROVIDERS: PCP Internal Medicine; Visit Provider Internal Medicine Cardiovascular Disease | DX: I35.2 Nonrheumatic aortic (valve) stenosis with insufficiency (principal); I51.89 Other ill-defined heart diseases | CPT/HCPCS: 93306 ==

== ENCOUNTER → 2025-03-12 10:24 | Outpatient (REF) | payer OTHER, SELFPAY ==
--- OUTSIDE RECORDS SUMMARY | 2025-03-12 11:15 | XMS_ITS | Clinical Summary ---
Author Organization [facility] [employer] [facility] ity Address [address] [place] [address] Care Team Providers Care Sample Box Maker Name Role Phone Unavailable Primary Care Provider [...] 2023-2 5 season) 2024 Influenza Vaccine (#1) 2025 HIB Vaccines Aged Out No longer [...]
--- OUTSIDE RECORDS SUMMARY | 2025-03-12 11:15 | XMS_ITS | Encounter Summary ---
Author Organization [employer] Address [address] [facility] [address] [place] [address] Care Team Providers Care Ground Water Pump Installer Name Role Phone Unavailable Primary Care Provider [...]
== END ==
LOC: HO.SL 10:24
PROVIDERS: PCP Internal Medicine; Visit Provider Hospitalist
DX: G47.33 Obstructive sleep apnea (adult) (pediatric) (principal)
CPT/HCPCS: 95806

== ENCOUNTER → 2025-03-12 10:39 | Outpatient (BNV) | payer OTHER, SELFPAY | PROVIDERS: PCP Internal Medicine; Visit Provider Psychiatry & Neurology Neurology | DX: G47.33 Obstructive sleep apnea (adult) (pediatric) (principal) | CPT/HCPCS: 95806 ==

== ENCOUNTER 2025-05-31 08:46 | Outpatient (AMB) | payer OTHER, SELFPAY ==
[2025-05-31 08:50] VITALS: BP 146/74; PULSE 76; O2SAT 95; BMI 31.3
--- NOTE | 2025-05-31 08:50 | A.OFFVIS_ITS ---
Vital Signs 05/31/25 08:50 Height 5 ft 6 in Weight 194 lb 0.108 oz BMI 31.3 BP 146/74 H Blood Pressure Location Lt brachial Position Sitting Pulse 76 Pulse Source Pulse Oximeter Pulse Oximetry (%) 95 Oxygen Delivery Method Room Air Intake Visit Reasons: Pulmonary embolism Accompanied by: Spouse Allergies No Known Allergies Allergy (Verified 05/31/25 08:52) HPI Comments Details: The patient is a 75-year-old gentleman who has previously healthy until back in the end of June when he developed COVID-19. He was ultimately hospitalized at [facility] for approximately more than 2 weeks. The patient did have COVID-19 pneumonia. He was treated appropriately there subsequently dis charged home. He felt weak. His symptoms continued getting worsening became more short of breath. He was so concerned with the breathing that he went back to [facility] for further evaluation. There in the ER he did undergo a CT scan of the chest PE protocol demonstrating multiple segmental and subsegmental emboli primarily in the right upper middle and lower lobes. The patient also had ground-glass opacities consistent with pneumonitis own also consolidation consistent with pneumonia. The patient has been on Eliquis ever since. He is running out of the Eliquis is wondering if he should continue. At this point the patient continues to have some symptoms of shortness of breath with activity mild in severity. We did have him go for 6 minutes walk test. During the ambulation he was able to ambulate 300 yd. His heart rate did increase to about 108 resulting in some increased shortness of breath. His Thomas score is 4/10. His pulse ox is the lowest became was 95%. Based on his ongoing dyspnea symptoms will be reasonable to repeat the CT scan of the chest to assess the pneumonitis and also to assess the consolidation in addition to make sure that his clots are resolved prior to stopping the anticoagulation. 12/20/2020 patient is here for pulmonary follow-up visit. Overall patient is doing well. He is tolerating the anticoagulation well. No evidence of any ble eding. The patient did have a repeat CT chest angiogram demonstrating resolution of the bone disease in addition to the stable pulmonary nodules. Still, the patient demonstrates areas of mosaic pattern in or pneumonitis which is likely the result of the cover 19 infection. His breathing is overall better. Plan to complete to 6 months of anticoagulation that he can stop the anticoagulation and will recheck his D-dimer 4 weeks later to risk stratify his risk for recurrent thromboembolic disease. 01/30/2021 the patient is here for pulmonary sick visit. Since we last spoke she has been having significant coughing episodes. The cough is getting worse and very aggravating to him. Moderate severity. Fact in his sleep. He is also very concerned because is coughing Public specially with the pandemic going on. He has been using the Dulera twice a day. He does have a postnasal drip and nasal congestion. Sometimes starts going to the coughing spells has lightheadedness. His lungs sound diminished but clear. No significant wheezing appreciated. Likely upper airway cough syndrome. He is not taking any KORTNEY inhibitors at this time. He has been taking cfdy-jeg-zqqpouf cough medication without any significant improvement. 03/21/2021 the patient is here for a pulmonary follow-up visit. Overall he is feeling a little better. His cough has improved a little bit. Although, he continues to have coughing spells to the medicine has been partially helpful. He continues to take to Dulera in addition to the cough suppressants. We did review again his CT scan of the chest demonstrating residual interstitial changes that are likely corresponding to his cough. He did complete the prednisone. No additional prednisone warranted. He has been on the Eliquis no more than 4 weeks. His D-dimer was below 200 which is reassuring that his risk of recurrent clot is low. Therefore he will continue to be off the anticoagulation at this time. No evidence of any residual clots and a CT scan of the chest which is also reassuring he did undergo blood he did have a slightly elevated MADELYN titer which at this point is likely not related to his interstitial process. However, needs to be monitored closely to see if it worsens or if he develops any other connective tissue disease symptoms. 06/18/2021 the patient is here for a pulmonary follow-up visit. Overall he is doing little better. He continues to a dry cough. Moderate severity at times. The cough suppressant, codeine only cause dizziness in addition so therefore he stopped it. Tessalon Perles are still helpful. He rated completed the prednisone. Denies any more wheezing or chest congestion. He is using the Dulera. He was supposed to undergo pulmonary function studies but he did not. He has been walking regularly. At this point will have him get a repeat chest x-ray and PFTs prior to the next visit. He is wondering about the risk of blood clots. He is having some tenderness over the right calf. His blood clots were in the left calf. I did put putting for blood work including a D-dimer that he can not check in case symptoms do persist. If the D-dimer indeed is elevated then will have to we evaluate for potential clot burden. 12/18/2021 the patient is here for pulmonary follow-up visit. He continues to complain of a dry cough in addition to chest tightness and wheezing. Moderate severity. His inhalers Have not been that helpful. In addition to that he does complaint of dyspnea on exertion. He does try to exercise but he gets very winded very quickly. Moderate severity. He did have a chest x-ray done demonstrating persistent airspace disease likely some degree of reticular changes due to his severe COVID infection. He did undergo pulmonary function studies also demonstrating ggsx-ls-urguoboz restrictive process due to the interstitial lung disease. Therefore, vanc being his diffusing capacity as well. In the office we did go for 6 minutes walk test the patient did not desaturate below 94%. Still the patient did become tachycardic and became symptomatic. In addition to he did complain of calf discomfort in his left side. Therefore I told them that we should at least do a D-dimer to make sure that he does not have any recurrent clots. He did have a D-dimer done actually today and did come back negative. Therefore this is reassuring that he does not have any evidence of any recurrent thromboembolic disease however, was to continue to monitor him closely. In view of the patient not responding well to his inhaler will provide with a nebulizer machine that he can use twice a day to see if this provides additional benefits. If the nebulizer is more effective for him he can also add additional medications to help him improve his symptoms. 01/30/2022 the patient is here for pulmonary follow-up visit. Overall he is feeling better. His cough is overall better. He is using his respiratory therapy with good effect. Denies any significant tachycardia. Denies any leg swelling or chest pain. He has been off anticoagulation now for several months. His D-dimer came back negative. We did review his last chest x-ray from November 2021 demonstrating no acute disease. At this point the patient has recovered and doing better. 10/02/2022 The patient is here for pulmonary follow-up visit. Overall the patient continues to do well. His cough still continues to be better. He still complains of some dyspnea on exertion. He does go to the gym regularly and does have vpkb-al-cbuxmvjl shortness of breath. He is trying to stay active and exercise regularly. He also continues uses maintenance inhaler. He has not had to use his rescue inhaler. We did review his recent chest x-ray that he had today. No active disease noted. No additional x-rays are needed. Although this has not been finally read. If there is any other changes that I did not appreciate then will follow through. In the meantime the patient had an exam and he did have a murmur on examination. therefore, in view of his shortness of breath I will go ahead and request an echocardiogram to make sure that there was no significant findings. Otherwise patient will return in 1 year. 10/01/2023 the patient is here for pulmonary follow-up visit. The patient overall has been doing very well. He denies any significant shortness breath. Has not had to use his inhalers regularly. We did review his last echocardiogram that he had back in 2022 demonstrating mild degree of aortic stenosis anywhere aortic regurg with a slightly dilated ascending aorta. This was measuring 4 cm. I did give him a report the patient will follow-up with his primary care doctor. I did not appreciate a murmur today. I did recommend he has some degree of follow-up in the future for these issues. From a pulmonary standpoint the patient is doing well he continue with the current respiratory regimen. He will follow-up in a year's time or as needed. 12/28/2024 the patient is here for a pulmonary follow-up visit. Overall he is doing okay. Still complains of dyspnea on exertion. Avhb-ow-quyjnbwy severity. Primarily with activity. Does well at rest. He has been using her respiratory inhalers with good effect. Patient does complaint of daytime drowsiness. His Zenda score is elevated 07/30. He does have a history sleep apnea although can not really tolerate the machine. Sometimes also has some palpitations. The patient also has issues with an ectatic aorta and aortic stenosis. In view of his worsening respiratory symptoms will go ahead and repeat the echocardiogram. Will also request a home sleep study this time. Patient follow-up sometime in 4-6 months if he has any issues prior to this he will call for an earlier assessment. 05/31/2025 the patient is here for pulmonary follow-up visit. Overall he is doing well. He continues to use the Dulera with good effect. He does use his rescue inhaler but typically less than 2 times a week. The patient denies any worsening cough or shortness of breath. The meantime he did have his echocardiogram which I personally reviewed. His aortic stenosis seems to be stable and his dilated ascending aorta is still measuring 4 cm in size. He continues to have significant snoring and also significant daytime drowsiness. His is here and she attests to the fact that he is snoring is gotten severe and is hard for him when he sleeping. He did have a sleep study which we personally reviewed. The patient does have very severe sleep apnea with AHI of 34 significant hypoxia down to 68%. We did talk about the options of a titration study versus starting APAP. At this point will just going to put him on APAP and then reassess. The patient will come back in 4 months with his APAP in order for us to review his progress. If he has any issues in between he can always call further recommendations. [facility] Medical History (Updated 12/28/24 @ 08:59 by Gabriele Rosas MD) MAINE (obstructive sleep apnea) Mild ascending aorta dilatation Murmur MADELYN positive [id number] syndrome Pulmonary emboli Pneumonia Pneumonitis Social History Alcohol intake: current Alcohol intake frequency: holidays/special occasions only Patient Tobacco Use Status: Never used Tobacco Review of Systems Const Denies chills, Reports daytime sleepiness, Reports fatigue, Denies fever(s), Reports snoring, Denies weight gain and Denies weight loss ENT Denies dizziness, Denies lip swelling and Denies tongue swelling Card Denies chest pain, Denies leg edema, Denies lightheadedness, Denies palpitations, Denies orthopnea and Denies other Resp Denies cough and Reports snoring GI Denies hematochezia and Denies change in stool character Musc Denies abnormal gait, Denies muscle weakness, Denies numbness, Denies radiating pain into limb and Denies tingling Neuro Denies abnormal gait, Denies dizziness, Denies numbness and Denies tingling Psych Denies no additional complaints Endo Reports fatigue and Denies palpitations Darius/Lymph Denies easy bleeding and Denies lymphadenopathy Aller/Immun Denies lip swelling and Denies tongue swelling Physical Exam Vital Signs: Last Vital Signs Pulse 76 05/31/25 08:50 BP 146/74 H 05/31/25 08:50 Pulse Ox 95 05/31/25 08:50 Oxygen Delivery Method Room Air 05/31/25 08:50 BMI result Body Mass Index 31.3 Const General: alert HEENT Mouth: Normal oral and palatal mucosa present and oropharynx normal Neck Neck: Yes normal visual inspection, Yes full ROM and Yes no lymphadenopathy Chest Chest palpation & inspection: normal inspection of the chest Resp Effort & Inspection: normal respiratory effort Auscultation: clear to auscultation bilaterally and no wheezes Cardio Rate: regular rate Rhythm: regular rhythm Heart sounds: S1 normal heart sound present, S2 normal heart sound present and Murmur heart sound present GI Palpation (GI): Soft to palpation and nontender Auscultation: normal bowel sounds Assessment & Plan Assessment & Plan (1) Pulmonary emboli: Comment: now resolve this was secondary to his COVID-19 infection therefore, consider a provoked event, ddimer negative x 2 Code(s): I26.99 - Other pulmonary embolism without acute cor pulmonale Category: Medical Qualifiers: Pulmonary embolism type: multiple subsegmental (without acute cor pulmonale) Qualified Code(s): I26.94 - Multiple subsegmental pulmonary emboli without acute cor pulmonale (2) MADELYN positive: Code(s): R76.8 - Other specified abnormal immunological findings in serum Category: Medical (3) Murmur: Comment: mild /AR Code(s): R01.1 - Cardiac murmur, unspecified Category: Medical (4) Mild ascending aorta dilatation: Code(s): I77.810 - Thoracic aortic ectasia Category: Medical (5) MAINE (obstructive sleep apnea): Code(s): G47.33 - Obstructive sleep apnea (adult) (pediatric) Category: Medical Plan Continue Dulera short-acting beta agonist as needed start APAP (Regional) F/U 4 months Coding Level of Care Code Est Pt Level 4 (04482) Complex EM visit Add On G2211 Diagnoses Multiple subsegmental pulmonary emboli without acute cor pulmonale I26.94 Pulmonary embolism type: multiple subsegmental (without acute cor pulmonale) MADELYN positive R76.8 Murmur R01.1 Mild ascending aorta dilatation I77.810 MAINE (obstructive sleep apnea) G47.33 Time Spent (min) 17
--- OUTSIDE RECORDS SUMMARY | 2025-05-31 09:24 | XMS_ITS | Encounter Summary ---
Author Organization [employer] Address [address] [facility] 7 [place] [address] Care Team Providers Care Education Intern Name Role Phone Unavailable Primary Care Provider [...]
--- OUTSIDE RECORDS SUMMARY | 2025-05-31 09:24 | XMS_ITS | Encounter Summary ---
Author Organization [facility] Address [address] [facility] [address] [place] [address] Phone Care Team Providers Care Sheepskin Pickler Name Role Phone Miguel Hazel MD Primary Care Provider [phone] Chavo Worley PA-C Primary Care Provide r Miguel Hazel MD Unavailable [phone] Encounter Details Date Type Department Care Team (Late st Contact Info) Description 08/12/2020 Transcribe Orders Virtual Department [address] [place] [address] Shira Ortega NP [address] [place] [address] [email or web address] Dyspnea, unspecified type (Primary Dx) Social History Tobacco Use Types Packs/Day Years Used Date Smoking Tobacco: Never Smokeless Tobacco: Never Alcohol Use Standard Drinks/Week Comments Yes 1 (1 standard drink = 0.6 oz pur e alcohol) Sex and Gender Information Value Date Recorded Sex Assigned at Not on file Legal Sex Male 8:32 AM EDT Gender Identity Not on file Sexual Orientation Not on file documented as of this encounter Plan of Treatment Not on file documented as of this encounter Visit Diagnoses Diagnosis Dyspnea, unspecified type- Primary documented in this encounter Care Teams Sheepskin Pickler Relationship Specialty Start Date End Date Miguel Hazel MD [address] [place] [phone] [email or web address] PCP - General 03/06/14 06/24/21 Chavo Worley PA-C [address] [place] [phone] PCP - General General Surgery 06/25/21 Miguel Hazel MD [address] [place] [address] [email or web address] 06/25/21 documented as of this encounter Additional Source Comments The information contained in this document represents components of the legal health record. It is not the complete legal health record.[facility]
--- OUTSIDE RECORDS SUMMARY | 2025-05-31 09:24 | XMS_ITS | Encounter Summary ---
Author Organization [facility] Address [address] [facility] [address] [place] [address] Phone Care Team Providers Care Dynamite Reclaimer Name Role Phone Miguel Hazel MD Primary Care Provider [phone] Chavo Worley PA-C Primary Care Provide r Miguel Hazel MD Unavailable [phone] Encounter Details Date Type Department Care Team (Late st Contact Info) Description 12/01/2018 Procedure Pass [facility] Endoscopy Admitting Dept Virtual Department [address] [place] [address] Social History Tobacco Use Types Packs/Day Years [...] Diagnoses Not on filedocumented in this encounter Additional Health Concerns Infection Onset Date Last Indicated Resolved Time CoV-Risk 03/14/2020 03/22/2020 03/28/2020 3:22 AM EDT documented as of this encounter Care Teams Dynamite Reclaimer Relationship Specialty Start Date End Date Miguel Hazel MD [address] [place] [address] [phone] [email or web address] PCP - General 03/06/14 06/24/21 Chavo Worley PA-C [address] [place] [address] PCP - General General Surgery 06/25/21 Miguel Hazel MD [address] [place] [address] [email or web address] 06/25/21 documented as of this encounter Additional Source Comments The information contained in this document represents components of the legal health record. It is not the complete legal health record.[facility]
--- OUTSIDE RECORDS SUMMARY | 2025-05-31 09:24 | XMS_ITS | Encounter Summary ---
Author Organization [facility] Address [address] [facility] [address] [place] [address] Phone Care Team Providers Care Content Architect Name Role Phone Miguel Hazel MD Primary Care Provider [phone] Chavo Worley PA-C Primary Care Provide r Miguel Hazel MD Unavailable [phone] Encounter Details Date Type Department Care Team (Late st Contact Info) Description 07/14/2017 Procedure Pass [place] Admitting Dept - Virtual Department [address] [place] [address] Social History Tobacco Use Types Packs/Day Years [...] documented as of this encounter Care Teams Content Architect Relationship Specialty Start Date End Date Miguel Hazel MD [address] [place] [address] [phone] [email or web address] PCP - General 03/06/14 06/24/21 Chavo Worley PA-C [address] [place] [address] PCP - General General Surgery 06/25/21 Miguel Hazel MD [address] [place] [address] [email or web address] 06/25/21 documented as of this encounter Additional Source Comments The information contained in this document represents components of the legal health record. It is not the complete legal health record.[facility]
--- OUTSIDE RECORDS SUMMARY | 2025-05-31 09:24 | XMS_ITS | Encounter Summary ---
Author Organization [facility] Address [address] [facility] [address] [place] [address] Phone Care Team Providers Care Kitchen Steward Name Role Phone Miguel Hazel MD Primary Care Provider [phone] Chavo Worley PA-C Primary Care Provide r Miguel Hazel MD Unavailable [phone] Encounter Details Date Type Department Care Team (Latest Contact Info) Description 10/07/2018 Transcribe Orders [facility] Laboratory [address] [address] Cade Chu MD [address] [facility], [address] [place] [id number] [email or web address] BPH with urinary obstruction (Primary Dx) Social History Tobacco Use Types [...] on file documented as of this encounter Results * PSA (screening) (10/07/2018 8:19 AM EST) PSA 0.91 0 - 4.00 ng/mL [facility] Blood 10/07/2018 8:19 AM EST 10/07/2018 8:23 AM EST us Cade Chu MD LAB BLOOD ORDERABLES Final Resu lt [facility] [address] [place] [address] documented in this encounter Visit Diagnoses Diagnosis BPH with urinary obstruction- Primary Hypertrophy of prostate with urinary obstruction and other lower urinary tract symptoms (LUTS) documented in this encounter Additional Health Concerns Infection Onset Date Last Indicated Resolved Time CoV-Risk 03/14/2020 03/22/2020 03/28/2020 3:22 AM EDT documented as of this encounter Care Teams Kitchen Steward Relationship Specialty Start Date End Date Miguel Hazel MD [address] [place] [address] [email or web address] PCP - General 03/06/14 06/24/21 Chavo Worley PA-C [address] [place] [address] PCP - General General Surgery 06/25/21 [place] [address] [place] [phone] 06/25/21 documented as of this encounter Additional Source Comments The information contained in this document represents components of the legal health record. It is not the complete legal health record.[facility]
--- OUTSIDE RECORDS SUMMARY | 2025-05-31 09:24 | XMS_ITS | Encounter Summary ---
Author Organization [facility] Address [address] [facility] [address] [place] [address] Phone Care Team Providers Care Senior Account Clerk Name Role Phone Miguel Hazel MD Primary Care Provider [phone] Chavo Worley PA-C Primary Care Provide r Miguel Hazel MD Unavailable [phone] Encounter Details Date Type Department Care Team (Latest Contact Info) Description 03/14/2020 Transcribe Orders Virtual Department [address] [place] [address] Lesli Whitney CNP [address] [place] [address] [email or web address] Fever, unspecified fever cause (Primary Dx); Muscle ache; Fatigue, unspecified type Social History Tobacco Use Types Packs/Day Years [...] documented as of this encounter Results * COVID-19 PCR Order (03/22/2020 3:47 PM EDT) Specimen Source NASOPHARYNGEAL SWAB (AUTOMOTIVE ENGINEERING TECHNICIAN) [facility] COVID-19 Comment FATIGUE [facility] COVID Testing Status Sent to [facility] Other 03/22/2020 3:47 PM EDT 03/22/2020 6:16 PM EDT us Lesli Shani [place] LEAD SYSTEMS ANALYST BODY FLUIDS AND STOOLS ORDERABLES Final Result [facility] [address] [place] [address] documented in this encounter Visit Diagnoses Diagnosis Fever, unspecified fever cause- Primary Muscle ache Unspecified myalgia and myositis Fatigue, unspecified type documented in this encounter Additional Health Concerns Infection Onset Date Last Indicated Resolved Time CoV-Risk 03/14/2020 03/22/2020 03/28/2020 3:22 AM EDT documented as of this encounter Care Teams Senior Account Clerk Relationship Specialty Start Date End Date Miguel Hazel MD [address] [place] [phone] [email or web address] PCP - General 03/06/14 06/24/21 Chavo Worley PA-C [address] [place] [phone] PCP - General General Surgery 06/25/21 [place] [address] [place] [phone] [email or web address] 06/25/21 documented as of this encounter Additional Source Comments The information contained in this document represents components of the legal health record. It is not the complete legal health record.[facility]
--- OUTSIDE RECORDS SUMMARY | 2025-05-31 09:24 | XMS_ITS | Clinical Summary ---
Author Organization [facility] ity Address [address] [place] [address] Care Team Providers Care Upholstery Tech Name Role Phone Unavailable Primary Care Provider [...] nts (1 - 1-dose 75+ series) 01/12/2024 Depression Screening 09/06/2024 COVID-19 Vaccine ( - 2023-2 5 season) 2025 Influenza Vaccine (#1) 2025 HIB Vaccines Aged [...]
--- OUTSIDE RECORDS SUMMARY | 2025-05-31 09:24 | XMS_ITS | Encounter Summary ---
Author Organization [facility] Address [address] [facility] [address] [place] [address] Phone Care Team Providers Care Girls Swimming Coach Name Role Phone Miguel Hazel MD Primary Care Provider [phone] Chavo Worley PA-C Primary Care Provide r Miguel Hazel MD Unavailable [phone] Encounter Details Date Type Department Care Team (Latest Contact Info) Description 10/04/2019 Transcribe Orders [facility] Laboratory [address] [address] Cade Chu MD [address] [facility], [address] [place] [id number] [email or web address] BPH with urinary obstruction (Primary Dx) Social [...] of this encounter Results * PSA (screening) (10/04/2019 8:11 AM EST) PSA 0.74 0 - 4.00 ng/mL [facility] Blood 10/04/2019 8:11 AM EST 10/04/2019 8:13 AM EST us Cade Chu MD LAB BLOOD ORDERABLES Final Resu lt [facility] [address] [place] [address] documented in this encounter Visit Diagnoses Diagnosis BPH with urinary obstruction- Primary Hypertrophy of prostate with urinary obstruction and other lower urinary tract symptoms (LUTS) documented in this encounter Additional Health Concerns Infection Onset Date Last Indicated Resolved Time CoV-Risk 03/14/2020 03/22/2020 03/28/2020 3:22 AM EDT documented as of this encounter Care Teams Girls Swimming Coach Relationship Specialty Start Date End Date Miguel Hazel MD [address] [place] [phone] [email or web address] PCP - General 03/06/14 06/24/21 Chavo Worley PA-C [address] [place] [address] PCP - General General Surgery 06/25/21 [place] [address] [place] [phone] 06/25/21 documented as of this encounter Additional Source Comments The information contained in this document represents components of the legal health record. It is not the complete legal health record.[facility]
--- OUTSIDE RECORDS SUMMARY | 2025-05-31 09:24 | XMS_ITS | Encounter Summary ---
Author Organization [facility] Address [address] [facility] [address] [place] [address] Phone Care Team Providers Care Quality Engineering Manager Name Role Phone Miguel Hazel MD Primary Care Provider [phone] Chavo Worley PA-C Primary Care Provide r Miguel Hazel MD Unavailable [phone] Reason for Referral * Consultation (Elective) - Closed Specialty Diagnoses / Procedures Referred By Juliet anna Referred To Contact Pulmonary Disease Shira Ortega NP Phone: tel: fax: [email or web address] [address] [place] [address] Phone: tel: Referral ID Status Reason Start Date Expiration Date Visits Re quested Visits Authorized [id number] Closed 11/01/2020 11/01/2021 1 1 Encounter Details Date Type Department Care Team ([facility] st Contact Info) Description 11/01/2020 Transcribe Orders [facility] Pulmonary, Allergy and Critical Care Medicine [address] [facility] [address] [place], [place] [id number] Shira Ortega NP [address] [place], [place] [id number] [email or web address] Social History Tobacco Use Types Packs/Day Years [...] as of this encounter Plan of Treatment Scheduled Referrals Name Type Priority Associated Diagnoses Order Schedule Ambulatory referral to [facility] Pulmonology Outpatient Referral Routine Ordered: 11/01/2020 documented as of this encounter Visit Diagnoses Not on filedocumented in this encounter Care Teams Quality Engineering Manager Relationship Specialty Start Date End Date Miguel Hazel MD [address] [place] [phone] [email or web address] PCP - General 03/06/14 06/24/21 Chavo Worley PA-C [address] [place] [address] PCP - General General Surgery 06/25/21 Miguel Hazel MD [address] [place] [phone] 06/25/21 documented as of this encounter Additional Source Comments The information contained in this document represents components of the legal health record. It is not the complete legal health record.[facility]
--- OUTSIDE RECORDS SUMMARY | 2025-05-31 09:24 | XMS_ITS | Clinical Summary ---
Author Organization [facility] Address [address] [facility] [address] [place] [address] Phone Care Team Providers Care Supervisor Engine Assembly Name Role Phone Chavo Worley PA-C Primary Care Provide r Miguel Hazel MD Unavailable [phone] Allergies No known active allergies Medications risperiDONE (RISPERDAL) 0.5 MG tablet Take 0.5 mg by mouth daily. Active acetaminophen (TYLENOL) 325 mg tablet Take 2 tablets (650 mg total) by mouth every 6 (six) hours as needed for mild pain or fever. 80 tablet 07/15/2017 Active FLUoxetine (PROZAC) 20 MG capsule Take 20 mg by mouth daily. Active cholecalciferol (VITAMIN D3) 1,000 unit tablet Take 1,000 Units by mouth daily. Active Active Problems Problem Noted Date Diagnosed Date BPH with obstruction/lower urinary tract symptom s 07/14/2017 Assessment & Plan (07/14/2017 2:05 PM EST): Patient is s/p TURP today. Plan: -Continue CBI and Jeffries today as per urology -DC tomorrow if doing well -Continue pain control Depression 07/14/2017 Overview (07/14/2017): Stable. Plan: -Continue home Risperidal Resolved Problems Problem Noted Date Diagnosed Date Resolved Date BPH (benign prostatic hyperplasia) 07/14/2017 07/14/2017 Overview (07/14/2017): Pt with longstanding voiding dysfunction here for TURP Family History Medical History Relation Comments No Known Problems Brother Diabetes Father Diabetes Mother No Known Problems Other No Known Problems Sister Relation Status Comments Brother Father Mother Other Sister Social History Tobacco Use Types Packs/Day Years Used Date Smoking Tobacco: Never Smokeless Tobacco: Never Alcohol Use Standard Drinks/Week Comments Yes 1 (1 standard drink = 0.6 oz pur e alcohol) Digital Access Answer Date Recorded No 01/31/2023 No 01/31/2023 No 01/31/2023 Reliable internet access at home? Not on file 01/31/2023 Device with a working camera? Not on file Sex and Gender Information Value Date Recorded Sex Assigned at Not on file Legal Sex Male 8:32 AM EDT Gender Identity Not on file Sexual Orientation Not on file Last Filed Vital Signs Vital Sign Reading Time Taken Comments Blood Pressure 84/47 12/01/2018 8:33 AM EDT Pulse 70 12/01/2018 7:11 AM EDT Temperature 36 C (96.8 F) 12/01/2018 8:33 AM EDT Respiratory Rate 18 12/01/2018 8:33 AM EDT Oxygen Saturation 93% 12/01/2018 8:33 AM EDT Inhaled Oxygen Concentration - - Weight 83.5 kg (184 lb) 11/22/2018 9:00 AM EDT Height 165.1 cm (5' 5 ) 11/22/2018 9:00 AM EDT Body Mass Index 30.62 11/22/2018 9:00 AM EDT Plan of Treatment Health Maintenance Due Date Last Done Comments LIPID PANEL 1949 DEPRESSION SCREENING 1961 HEPATITIS C SCREENING 1967 PNEUMOCOCCAL VACCINES (50+ years) (1 of 1 - PCV) 1999 ZOSTER VACCINES (1 of 2) 1999 Adult Td,Tdap Booster 12/08/2021 12/09/2011, 997 RSV VACCINE (1 - 1-dose 75+ series) 01/12/2024 INFLUENZA VACCINE (#1) 2025 0, 07/11/2019, 06/02/2012, Additional history exists COVID-19 VACCINE (2024- season) 2025 11/26/2020 SMOKING STATUS SCREENING (Once After 26 Yrs) Completed 12/01/2018 HEPATITIS A VACCINES Aged Out No long er eligible based on patient's age to complete this topic HIB VACCINES Aged Out No longer eligi ble based on patient's age to complete this topic MENINGOCOCCAL VACCINES (ACWY) Aged Out No longer eligible based on patient's age to complete this topic MENINGOCOCCAL VACCINES (B) Aged Out N o longer eligible based on patient's age to complete this topic Medical Devices Implanted Type Area Vice President Fixed Income Device Identifier Shelf Expiration Date Model / Serial / Lot Stent Variable 6fr 22-30 - [id number] Implanted:Qty: 1 on 07/14/2017 by Cade Chu MD at [facility] Left: Ureter Flasma 03/10/2020 [id number] / [id number] / [id number] Insurance [facility] MEDICARE REPLACEMENT RON SMITH [id number] [facility] MED[employer] REPLACEMENT MEDICARE REPLACEMENT [facility] MED[employer] REPLACEMENT [facility] MED[employer] RE[employer] MEDICARE REPLACEMENT [facility] MEDICARE REPLACEMENT [facility] MED[employer] REPLACEMENT [facility] MEDIC[employer] REPLACEMENT [facility] MEDIC[employer] REPLACEMENT O MEDICARE REPLACEMENT [facility] MEDICARE REPLACEMENT [facility] MEDIC[employer] REPLACEMENT Advance Directives For more information, please contact: [phone] (9AM - 5PM [place], Wednesday-Wednesday) * Full Code (Confirmed) (Latest Code Status on File) Date Activated Date Inactivated Comments 07/14/2017 11:03 AM 07/15/2017 7:39 PM Question Answer Comments Code Discussion Comments: full Care Teams Supervisor Engine Assembly Relationship Specialty Start Date End Date Chavo Worley PA-C [address] [place] [address] PCP - General General Surgery 06/25/21 Miguel Hazel MD [address] [place] [address] [email or web address] 06/25/21 Additional Source Comments The information contained in this document represents components of the legal health record. It is not the complete legal health record.[facility]
--- OUTSIDE RECORDS SUMMARY | 2025-05-31 09:24 | XMS_ITS | Clinical Summary ---
Author Organization [employer] Address [address] [facility] [address] [place] [address] Care Team Providers Care Teacher Vocational Training Name Role Phone Unavailable Primary Care Provider [...]
== END 2025-05-31 09:14 | disposition home or self-care (01) ==
LOC: HO.HPS 08:47
PROVIDERS: PCP Internal Medicine; Visit Provider Hospitalist
DX: I26.94 Multiple subsegmental thrombotic pulmonary emboli without acute cor pulmonale (principal); R76.8 Other specified abnormal immunological findings in serum; R01.1 Cardiac murmur, unspecified; I77.810 Thoracic aortic ectasia; G47.33 Obstructive sleep apnea (adult) (pediatric)
CPT/HCPCS: 99214; G2211

== ENCOUNTER → 2025-05-31 08:46 | Outpatient (BNVA) | payer OTHER, SELFPAY | PROVIDERS: PCP Internal Medicine; Visit Provider Hospitalist | DX: I26.94 Multiple subsegmental thrombotic pulmonary emboli without acute cor pulmonale (principal); G47.33 Obstructive sleep apnea (adult) (pediatric); I27.20 Pulmonary hypertension, unspecified; R76.8 Other specified abnormal immunological findings in serum; I77.810 Thoracic aortic ectasia; R01.1 Cardiac murmur, unspecified | CPT/HCPCS: 99212 ==